=== PATIENT | female | born 1985 | race Caucasian/White ===

== ENCOUNTER 2018-11-20 15:48 | Emergency (ER) | payer BC ==
[~2018-11-20] VITALS: Ht 170.2 cm; Wt 70.3 kg
--- NOTE | 2018-11-20 15:58 | NUR ---
Patient seen and examine by
[2018-11-20] MEDS ORDERED: ONDANSETRON 4 MG/2 ML VIAL IV ONE (16:15)
[2018-11-20] MEDS ORDERED: ONDANSETRON 4 MG/2 ML VIAL ONE (16:15)
[2018-11-20] MEDS ORDERED: IV NORMAL SALINE 1000 ML BAG IV ONE (16:15)
[2018-11-20 16:22] LABS: BASOPHILS % (AUTO) 0.3 % (0.0-2.0); EOSINOPHILS % (AUTO) 0.6 % (0.0-7.0); HEMATOCRIT 33.9 % (31.2-41.9); HEMOGLOBIN 11.6 g/dL (10.9-14.3); LYMPHOCYTES # (AUTO) 2.4 K/uL (20.0-40.0); LYMPHOCYTES % (AUTO) 38.2 % (20.5-51.5); MEAN CORPUSCULAR HEMOGLOBIN 29.7 uug (24.7-32.8); MEAN CORPUSCULAR HGB CONC 34 g/dL (32.3-35.6); MEAN CORPUSCULAR VOLUME 86.8 fL (75.5-95.3); MONOCYTES # (AUTO) 0.4 K/uL (2.0-10.0); MONOCYTES % (AUTO) 6.3 % (0.0-11.0); NEUTROPHILS # (AUTO) 3.5 K/uL (1.8-8.9); NEUTROPHILS % (AUTO) 54.6 % (38.5-71.5); PLATELET COUNT (AUTO) 217 K/uL (179-408); WHITE BLOOD COUNT (AUTO) 6.3 K/uL (3.8-11.8)
[2018-11-20 16:30] LABS: CREATININE 0.9 mg/dL (0.6-1.3); POTASSIUM 3.4 mmol/L (3.5-5.1)
[2018-11-20 16:36] LABS: BILIRUBIN,DIRECT 0.1 mg/dL (0.0-0.2); BILIRUBIN,TOTAL 0.4 mg/dL (0.2-1.0); TOTAL PROTEIN, SERUM 7.7 g/dL (6.4-8.2)
[2018-11-20 17:04] VITALS: BP 115/94
--- NOTE | 2018-11-20 17:07 | NUR ---
dcd instructions and prescriptions given to pt. IVl dcd. patient left room ambulatory with steady gait. AAOx4. vitals stable, no nausea/ vomiting.
== END 2018-11-20 17:13 | disposition home or self-care (01) ==
LOC: ER 15:54
DX: T62.8X1A Toxic effect of other specified noxious substances eaten as food, accidental (unintentional), initial encounter (principal); Y92.89 Other specified places as the place of occurrence of the external cause
CPT/HCPCS: 36415; 80048; 80076; 83690; 84702; 85025; 96361; 96374; 99283; J2405; A4663; J7030

== ENCOUNTER 2020-06-07 17:46 | Emergency (ER) | payer BC ==
[~2020-06-07] VITALS: Ht 170.2 cm; Wt 6.8 kg
[2020-06-07] MEDS ORDERED: EVOL140S2 SQ (18:00)
[2020-06-07] MEDS ORDERED: ROSU40TA PO (18:00)
[2020-06-07] MEDS ORDERED: IV NORMAL SALINE 1000 ML BAG IV ONE (18:15)
[2020-06-07] MEDS ORDERED: ASPIRIN 325 MG TABLET PO ONE (18:15)
[2020-06-07] MEDS ORDERED: NITROGLYCERIN 0.4 MG/TAB BOTTLE SL ONE ×2 (18:15→18:23)
[2020-06-07] MEDS ORDERED: ASPIRIN 325 MG TABLET ONE (18:23)
[2020-06-07] MEDS ORDERED: LABETALOL HCL 100 MG/20 ML VIAL IV ONE ×2 (18:45→20:15)
[2020-06-07 18:51] LABS: BASOPHILS % (AUTO) 0.3 % (0.0-2.0); HEMATOCRIT 39.1 % (31.2-41.9); HEMOGLOBIN 13.9 g/dL (10.9-14.3); LYMPHOCYTES # (AUTO) 1.2 K/uL (20.0-40.0); LYMPHOCYTES % (AUTO) 9.3 % (20.5-51.5); MEAN CORPUSCULAR HEMOGLOBIN 32.3 uug (24.7-32.8); MEAN CORPUSCULAR HGB CONC 36 g/dL (32.3-35.6); MEAN CORPUSCULAR VOLUME 90.8 fL (75.5-95.3); MONOCYTES # (AUTO) 0.7 K/uL (2.0-10.0); MONOCYTES % (AUTO) 5.1 % (0.0-11.0); NEUTROPHILS # (AUTO) 11.4 K/uL (1.8-8.9); NEUTROPHILS % (AUTO) 85.3 % (38.5-71.5); PLATELET COUNT (AUTO) 260 K/uL (179-408); WHITE BLOOD COUNT (AUTO) 13.4 K/uL (3.8-11.8)
[2020-06-07] MEDS ORDERED: LABETALOL HCL 100 MG/20 ML VIAL ONE (19:01)
[2020-06-07 19:11] LABS: BILIRUBIN,DIRECT 0.3 mg/dL (0.0-0.2); CREATININE 0.8 mg/dL (0.6-1.3); TOTAL PROTEIN, SERUM 8.3 g/dL (6.4-8.2)
[2020-06-07 19:14] LABS: *URINE HCG, QUAL NEGATIVE (NEGATIVE)
[2020-06-07 19:14] LABS: POTASSIUM 2.8 mmol/L (3.5-5.1)
[2020-06-07 19:24] LABS: *AMPHETAMINE, URINE POSITIVE (NEGATIVE); *CANNABINOID, URINE NEGATIVE (NEGATIVE); *COCCAINE, URINE NEGATIVE (NEGATIVE); *OPIATE, URINE NEGATIVE (NEGATIVE); *PHENCYCLIDINE SCREEN,URINE NEGATIVE (NEGATIVE)
[2020-06-07] MEDS ORDERED: LORAZEPAM 2 MG/1 ML VIAL IV ONE (19:30)
[2020-06-07] MEDS ORDERED: POTASSIUM CHLORIDE 20 MEQ TAB.PRT.SR PO ONE (19:30)
[2020-06-07] MEDS ORDERED: IV 1/2 NS + KCL 20 MEQ BAG 1,000 ML IV ONE (19:30)
[2020-06-07] MEDS ORDERED: LORAZEPAM 2 MG/1 ML VIAL ONE (19:37)
[2020-06-07] MEDS ORDERED: POTASSIUM CHLORIDE 20 MEQ TAB.PRT.SR ONE (19:38)
[2020-06-07] MEDS ORDERED: ALPR0.255 PO (22:11)
[2020-06-07 22:21] VITALS: BP 134/83
== END 2020-06-07 22:22 | disposition home or self-care (01) ==
LOC: ER 17:54
DX: R07.2 Precordial pain (principal); R00.0 Tachycardia, unspecified; D72.829 Elevated white blood cell count, unspecified; E78.5 Hyperlipidemia, unspecified; Z79.899 Other long term (current) drug therapy; R03.0 Elevated blood-pressure reading, without diagnosis of hypertension; Z20.822 Contact with and (suspected) exposure to COVID-19; R94.31 Abnormal electrocardiogram [ECG] [EKG]
CPT/HCPCS: 36415; 71045; 80048; 80061; 80076; 80307; 83880; 84484 ×2; 84703; 85025; 85379; 85730; 87426; 93005; 96361; 96365; 96366; 96375; 96376; 99285; J2060; J3490; U0003; 70030-TC; A4663; J7030